=== PATIENT | male | born 1965 | race Caucasian/White ===

== ENCOUNTER → 2023-07-01 | Outpatient (CLI) | payer BC ==
--- NOTE | 2023-07-01 13:42 | US ---
EXAMINATION TYPE: US abdomen complete DATE OF EXAM: 07/01/2023 COMPARISON: NONE CLINICAL INDICATION: Male, 57 years old with history of R10.9 UNSPECIFIED ABDOMINAL PAIN; Pt states e pigastric pain x 3 days TECHNIQUE: Multiple sonographic images of the abdomen are obtained. FINDINGS: EXAM MEASUREMENTS: Liver Length: 15.0 cm Gallbladder Wall: 0.2 cm CBD: 1.6 cm Spleen: 10.8 cm Right Kidney: 11.6 x 5.7 x 5.2 cm Left Kidney: 11.8 x 6.0 x 5.2 cm Pancreas: 3mm panc duct visualized, Liver: wnl Gallbladder: Distended with probable sludge Evidence for sonographic Meeks's sign: Yes CBD: Dilated Spleen: wnl Right Kidney: wnl, upper pole gassed out Left Kidney: wnl Upper IVC: wnl Abd Aorta: wnl, distal portion gassed out IMPRESSION: Dilated gallbladder with biliary sludge with positive sonographic Meeks's sign suggesting acute chol ecystitis. Correlate with signs and symptoms and consider HIDA scan for confirmation.
== END | disposition home or self-care (01) ==
LOC: RADUSWWP 12:59
PROVIDERS: ATTEND Family Medicine
DX: K82.8 Other specified diseases of gallbladder (principal)
CPT/HCPCS: 76700

== ENCOUNTER 2023-07-03 11:09 | Emergency (ER) | payer BC ==
[2023-07-03 11:25] VITALS: RESP 18
--- NOTE | 2023-07-03 11:48 | ED ---
Abdominal Pain HPI - General Source: patient, RN notes reviewed Mode of arrival: ambulatory Limitations: no limitations <Roxana Sultana - Last Filed: 07/03/23 11:45> <Diogenes Cortez - Last Filed: 07/03/23 18:14> - General Chief Complaint: Abdominal Pain Stated Complaint: Abn Labs Time Seen by Provider: 07/03/23 11:30 - History of Present Illness Initial Comments: Quick noteis a 57-year-old male who presents the emergency department chief complaint of abdominal pain and GI symptoms worse over the last 6 days. Patient states that he has had intermittent diarrhea, nausea and vomiting, last episode 2 days ago. He endorses light colored stool over the last few days. Denies hememesis, hematochezia, dark/tarry stools, history of abdominal surguries. since this time with his last (DanicaеленаRoxana) 57-year-old male sent in by primary care for abnormal outpatient lab tests and 1 week history of abdominal pain. Patient reports epigastric abdominal pain with associated nausea and early satiety. He also reports dark urine and light- colored stool. No fever. He received an outpatient ultrasound earlier this week as well as laboratory testing. (Diogenes Cortez) - Related Data Home Medications Medication Instructions Recorded Confirmed No Known Home Medications 07/03/23 07/03/23 Allergies Allergy/AdvReac Type Severity Reaction Status Date / Time No Known Allergies Allergy Verified 07/03/23 17:27 Review of Systems ROS Other: All systems not noted in ROS Statement are negative. <Roxana Sultana - Last Filed: 07/03/23 11:45> ROS Other: All systems not noted in ROS Statement are negative. <Diogenes Cortez - Last Filed: 07/03/23 18:14> ROS Statement: Those systems with pertinent positive or pertinent negative responses have been documented in the HPI. Past Medical History Past Medical History: No Reported History History of Any Multi-Drug Resistant Organisms: None Reported Past Surgical History: Orthopedic Surgery, Tonsillectomy Past Psychological History: No Psychological Hx Reported Smoking Status: Current every day smoker Past Alcohol Use History: Occasional Past Drug Use History: Marijuana <Roxana Sultana - Last Filed: 07/03/23 11:45> General Exam Limitations: no limitations <Roxana Sultana - Last Filed: 07/03/23 11:45> General appearance: alert, in no apparent distress Head exam: Present: atraumatic, normocephalic Eye exam: Present: normal appearance, PERRL ENT exam: Present: normal exam Neck exam: Present: normal inspection Respiratory exam: Present: normal lung sounds bilaterally. Absent: respiratory distress, wheezes Cardiovascular Exam: Present: regular rate, normal rhythm GI/Abdominal exam: Present: soft, tenderness (Epigastric tenderness). Absent: distended, guarding, rebound Extremities exam: Present: normal inspection, normal capillary refill Neurological exam: Present: alert, oriented X3, CN II-XII intact. Absent: motor sensory deficit Psychiatric exam: Present: normal affect, normal mood Skin exam: Present: warm, dry, intact. Absent: cyanosis, diaphoretic <Diogenes Cortez - Last Filed: 07/03/23 18:14> - General Exam Comments Initial Comments: Visual Physical Exam Vital signs reviewed General: Well-appearing, nontoxic, no acute distress. Head: Normocephalic, atraumatic Eyes: PERRLA, EOMI ENT: Airway patent Chest: Nonlabored breathing Skin: No visual rash, normal skin tone Neuro: Alert and oriented 3 Musculoskeletal: No gross abnormalities (Roxana Sultana) Course Vital Signs 07/03/23 07/03/23 11:12 16:32 Temperature 97.7 F Pulse Rate 76 50 L Respiratory 18 18 Rate Blood Pressure 133/75 150/84 O2 Sat by Pulse 98 98 Oximetry Medical Decision Making <Roxana Sultana - Last Filed: 07/03/23 11:45> - Lab Data Result diagrams: 07/03/23 12:48 07/03/23 12:48 <Diogenes Cortez - Last Filed: 07/03/23 18:14> - Medical Decision Making I completed the quick note portion of this chart signed Roxana Sultana PA-C (Roxana Sultana) Was pt. sent in by a medical professional or institution (CORNELL Quintero, SERVICE ORDER DISPATCHER, urgent care, hospital, or custodial...) When possible be specific @20 by primary care with abnormal lab testing. Did you speak to anyone other than the patient for history (EMS, parent, family, police, friend...)? What history was obtained from this source @ -No Did you review nursing and triage notes (agree or disagree)? Why? @ -I reviewed and agree with nursing and triage notes Were old charts reviewed (outside hosp., previous admission, EMS record, old EKG, old radiological studies, urgent care reports/EKG's, custodial records)? Report findings @ -No old charts were reviewed Differential Abdominal Pain Men: Appendicitis, cholecystitis, diverticulosis, ischemic bowel, pancreatitis, hepatitis, UTI, gastroenteritis, AAA, incarcerated hernia, bowel obstruction, constipation, inflammatory bowel, hepatitis, peptic ulcer disease, splenic infarction, perforated viscus, testicular torsion, this is not meant to be an all-inclusive list EKG interpreted by me (3pts min.). @ -As above X-rays interpreted by me (1pt min.). @ -None done CT interpreted by me (1pt min.). @CT showing dilated common bile duct thank, concern for obstructing mass. U/S interpreted by me (1pt. min.). @ -None done What testing was considered but not performed or refused? (CT, X-rays, U/S, labs)? Why? @ -None What meds were considered but not given or refused? Why? @ -None Did you discuss the management of the patient with other professionals (professionals i.e. , PA, SERVICE ORDER DISPATCHER, lab, RT, psych nurse, older adult social work specialist, ios software engineer, teacher, minesweeping officer, oil field caser)? Give summary @ -Case discussed with Lilliana Griffith, Dr. Figueroa, will accept for GI consultation. Was smoking cessation discussed for >3mins.? @ -No Was critical care preformed (if so, how long)? @ -No Were there social determinants of health that impacted care today? How? (Homelessness, low income, unemployed, alcoholism, drug addiction, transportation, low edu. Level, literacy, decrease access to med. care, skilled nursing, rehab)? @ -No Was there de-escalation of care discussed even if they declined (Discuss DNR or withdrawal of care, Hospice)? DNR status @ -No What co-morbidities impacted this encounter? (DM, HTN, Smoking, COPD, CAD, Cancer, CVA, ARF, Chemo, Hep., AIDS, mental health diagnosis, sleep apnea, morbid obesity)? @ -None Was patient admitted / discharged? Hospital course, mention meds given and route, prescriptions, significant lab abnormalities, going to OR and other pertinent info. @ -57-year-old male presenting with vague abdominal discomfort and jaundice as well as light-colored stool. Patient does have hyperbilirubinemia with a bilirubin of 6 and transaminitis. He is afebrile with normal white blood cell count. Ultrasound performed 2 days ago did show dilated common bile duct and thickening of the gallbladder wall. Patient was covered with antibiotics, Zosyn in the setting of biliary obstruction. Patient will require GI consultation for evaluation of this obstruction. He is transferred to [facility]. Undiagnosed new problem with uncertain prognosis? @ -No Drug Therapy requiring intensive monitoring for toxicity (Heparin, Nitro, Insulin, Cardizem)? @ -No Were any procedures done? @ -No Diagnosis/symptom? @ -Hyperbilirubinemia, bile duct obstruction, jaundice Acute, or Chronic, or Acute on Chronic? @Acute Uncomplicated (without systemic symptoms) or Complicated (systemic symptoms)? @ -Default Side effects of treatment? @ -No Exacerbation, Progression, or Severe Exacerbation? @ -No Poses a threat to life or bodily function? How? (Chest pain, USA, MA, pneumonia, PE, COPD, DKA, ARF, appy, cholecystitis, CVA, Diverticulitis, Homicidal, Suicidal, threat to staff... and all critical care pts) @ -Yes, pancreatic mass, ascending cholangitis (Diogenes Cortez) - Lab Data Lab Results 07/03/23 07/03/23 07/03/23 Range/Units 12:48 12:48 12:48 WBC 5.5 (3.8-10.6) k/uL RBC 4.57 (4.30-5.90) m/uL Hgb 14.9 (13.0-17.5) gm/dL Hct 46.8 (39.0-53.0) % MCV 102.4 H (80.0-100.0) fL MCH 32.6 (25.0-35.0) pg MCHC 31.8 (31.0-37.0) g/dL RDW 12.8 (11.5-15.5) % Plt Count 166 (150-450) k/uL MPV 8.3 Neutrophils % 58 % Lymphocytes % 33 % Monocytes % 6 % Eosinophils % 1 % Basophils % 1 % Neutrophils # 3.2 (1.3-7.7) k/uL Lymphocytes # 1.8 (1.0-4.8) k/uL Monocytes # 0.3 (0-1.0) k/uL Eosinophils # 0.0 (0-0.7) k/uL Basophils # 0.0 (0-0.2) k/uL Macrocytosis Slight PT 11.1 (10.0-12.5) sec INR 1.0 (<1.2) APTT 24.6 (22.0-30.0) sec Sodium 139 (137-145) mmol/L Potassium 4.3 (3.5-5.1) mmol/L Chloride 109 H (98-107) mmol/L Carbon Dioxide 23 (22-30) mmol/L Anion Gap 7 mmol/L BUN 22 H (9-20) mg/dL Creatinine 0.99 (0.66-1.25) mg/dL Est GFR (CKD-EPI)AfAm >90 (>60 ml/min/1.73 sqM) Est GFR (CKD-EPI)NonAf 83 (>60 ml/min/1.73 sqM) Glucose 81 (74-99) mg/dL Plasma Lactic Acid Jose Raul (0.7-2.0) mmol/L Calcium 9.1 (8.4-10.2) mg/dL Total Bilirubin 6.0 H (0.2-1.3) mg/dL AST 338 H (17-59) U/L ALT 712 H (4-49) U/L Alkaline Phosphatase 215 H (38-126) U/L Total Protein 7.2 (6.3-8.2) g/dL Albumin 4.3 (3.5-5.0) g/dL Amylase 100 (30-110) U/L Lipase 481 H (23-300) U/L Urine Color Urine Appearance (Clear) Urine pH (5.0-8.0) Ur Specific Buchanan (1.001-1.035) Urine Protein (Negative) Urine Glucose (UA) (Negative) Urine Ketones (Negative) Urine Blood (Negative) Urine Nitrite (Negative) Urine Bilirubin (Negative) Urine Urobilinogen (<2.0) mg/dL Ur Leukocyte Esterase (Negative) Urine RBC (0-5) /hpf Urine WBC (0-5) /hpf Ur Squamous Epith Cells (0-4) /hpf Urine Mucus (None) /hpf 07/03/23 07/03/23 07/03/23 Range/Units 12:48 15:40 16:31 WBC (3.8-10.6) k/uL RBC (4.30-5.90) m/uL Hgb (13.0-17.5) gm/dL Hct (39.0-53.0) % MCV (80.0-100.0) fL MCH (25.0-35.0) pg MCHC (31.0-37.0) g/dL RDW (11.5-15.5) % Plt Count (150-450) k/uL MPV Neutrophils % % Lymphocytes % % Monocytes % % Eosinophils % % Basophils % % Neutrophils # (1.3-7.7) k/uL Lymphocytes # (1.0-4.8) k/uL Monocytes # (0-1.0) k/uL Eosinophils # (0-0.7) k/uL Basophils # (0-0.2) k/uL Macrocytosis PT (10.0-12.5) sec INR (<1.2) APTT (22.0-30.0) sec Sodium (137-145) mmol/L Potassium (3.5-5.1) mmol/L Chloride (98-107) mmol/L Carbon Dioxide (22-30) mmol/L Anion Gap mmol/L BUN (9-20) mg/dL Creatinine (0.66-1.25) mg/dL Est GFR (CKD-EPI)AfAm (>60 ml/min/1.73 sqM) Est GFR (CKD-EPI)NonAf (>60 ml/min/1.73 sqM) Glucose (74-99) mg/dL Plasma Lactic Acid Jose Raul 0.6 L 0.7 (0.7-2.0) mmol/L Calcium (8.4-10.2) mg/dL Total Bilirubin (0.2-1.3) mg/dL AST (17-59) U/L ALT (4-49) U/L Alkaline Phosphatase (38-126) U/L Total Protein (6.3-8.2) g/dL Albumin (3.5-5.0) g/dL Amylase (30-110) U/L Lipase (23-300) U/L Urine Color Dark Brown Urine Appearance Cloudy (Clear) Urine pH 6.0 (5.0-8.0) Ur Specific Buchanan 1.032 (1.001-1.035) Urine Protein Trace H (Negative) Urine Glucose (UA) Negative (Negative) Urine Ketones Negative (Negative) Urine Blood Negative (Negative) Urine Nitrite Negative (Negative) Urine Bilirubin 2+ H (Negative) Urine Urobilinogen 4.0 (<2.0) mg/dL Ur Leukocyte Esterase Trace H (Negative) Urine RBC 1 (0-5) /hpf Urine WBC 7 H (0-5) /hpf Ur Squamous Epith Cells <1 (0-4) /hpf Urine Mucus Many H (None) /hpf Disposition <Roxana Sultana - Last Filed: 07/03/23 11:45> Is patient prescribed a controlled substance at d/c from ED?: No Time of Disposition: 18:14 - Out of Hospital Transfer - Req. Specs Out of Hospital Transfer - Requested Specifics: Other Emergency Center (Transfer to [facility]) <Diogenes Cortez - Last Filed: 07/03/23 18:14> Clinical Impression: Hyperbilirubinemia, Obstruction of pancreatic duct Disposition: OTHER INSTITUTION NOT DEFINED Condition: Stable Referrals: Blaine Davidson MD [Primary Care Provider] - 1-2 days
[2023-07-03 13:07] LABS: Basophils % (A) 1 %; Eosinophils % (A) 1 %; HCT 46.8 % (39.0-53.0); HGB 14.9 gm/dL (13.0-17.5); Lymphocytes # (A) 1.8 k/uL (1.0-4.8); Lymphocytes % (A) 33 %; MCH 32.6 pg (25.0-35.0); MCHC 31.8 g/dL (31.0-37.0); MCV 102.4 fL (80.0-100.0); Macrocytosis Slight; Mean Platelet Volume 8.3; Monocytes # (A) 0.3 k/uL (0-1.0); Monocytes % (A) 6 %; Neutrophils # (A) 3.2 k/uL (1.3-7.7); Neutrophils % (A) 58 %; Platelet Count 166 k/uL (150-450); RBC 4.57 m/uL (4.30-5.90); RDW 12.8 % (11.5-15.5); WBC 5.5 k/uL (3.8-10.6)
[2023-07-03 13:10] LABS: ALT 712 U/L (4-49); AST 338 U/L (17-59); African American GFR (CKD) >90 (>60 ml/min/1.73 sqM); Albumin 4.3 g/dL (3.5-5.0); Alkaline Phosphatase 215 U/L (38-126); Amylase 100 U/L (30-110); Anion Gap 7 mmol/L; Blood Urea Nitrogen 22 mg/dL (9-20); Calcium 9.1 mg/dL (8.4-10.2); Carbon Dioxide 23 mmol/L (22-30); Chloride 109 mmol/L (98-107); Glucose 81 mg/dL (74-99); Lipase 481 U/L (23-300); Non-African American GFR(CKD) 83 (>60 ml/min/1.73 sqM); Potassium 4.3 mmol/L (3.5-5.1); Sodium 139 mmol/L (137-145); Total Protein 7.2 g/dL (6.3-8.2)
[2023-07-03 13:16] LABS: Partial Thromboplastin Time 24.6 sec (22.0-30.0); Prothrombin Time 11.1 sec (10.0-12.5)
[2023-07-03 17:02] LABS: Appearance,Urine Cloudy (Clear); Bilirubin,Urine 2+ (Negative); Blood,Urine Negative (Negative); Color,Urine Dark Brown; Glucose,Urine (UA) Negative (Negative); Ketones,Urine Negative (Negative); Leukocyte Esterase,Urine Trace (Negative); Mucus,Urine Many /hpf; Nitrite,Urine Negative (Negative); Protein,Urine Trace (Negative); RBC,Urine 1 /hpf (0-5); Specific Gravity,Urine 1.032 (1.001-1.035); Squamous Epithelial Cell,Urine <1 /hpf (0-4); WBC,Urine 7 /hpf (0-5)
[2023-07-03] MEDS: SODIUM CHLORIDE 0.9% 1,000 ML IV ONE (17:05)
[2023-07-03] MEDS: PIPERACILLIN-TAZOBACTAM 3.375 GM in SODIUM CHLORIDE 0.9% 100 ML IVPB SCH (17:05)
--- NOTE | 2023-07-03 17:25 | CT ---
EXAMINATION TYPE: CT abdomen pelvis w con CT DLP: 698.8 mGycm, Automated exposure control for dose reduction was used. DATE OF EXAM: 07/03/2023 5:03 PM COMPARISON: None CLINICAL INDICATION:Male, 57 years old with history of epigastric/hyperbili; epigastric abd pain. TECHNIQUE: Axial CT abdomen pelvis w con;Sagittal and coronal reformats were created on a separate w orkstation. Contrast used:100 ml mL of Isovue 300 with IV Contrast, (none if empty) Oral contrast used: without Oral Contrast (none if empty) FINDINGS: LOWER CHEST: Unremarkable ABDOMEN LIVER: Unremarkable GALLBLADDER AND BILE DUCTS: The common bile duct terminates abruptly series series 201 image 46. The common duct is dilated up to 12 mm. The central intrahepatic bili sys tem is also dilated. PANCREAS: Questionable low-density area series 201 image 25 in the pancreatic head/uncinate process. Area measures 2.3 x 1.2 cm. SPLEEN: Unremarkable. ADRENAL GLANDS: Unremarkable. KIDNEYS AND URETERS: No evidence of hydronephrosis or renal calculus. The ureters are unremarkable. PELVIS BLADDER: Unremarkable REPRODUCTIVE: Prostate is enlarged in size measuring cm in transverse dimension. ABDOMEN & PELVIS STOMACH AND BOWEL: No evidence of bowel obstruction. PERITONEUM/RETROPERITONEUM: No evidence of pneumoperitoneum or free fluid. VASCULATURE: No evidence of aortic aneurysm. MUSCULOSKELETAL: No acute osseous abnormalities LYMPH NODES: No gross evidence for lymphadenopathy. SOFT TISSUE/ABDOMINAL WALL: Unremarkable IMPRESSION: Dilation of the common bile duct and central intrahepatic biliary system. There is abrupt cut off of the common bile duct in the pancreatic head with underlying pancreatic head/uncinate process mass sug gested. ERCP with tissue sampling recommended.
[2023-07-03 18:42] VITALS: BP 161/86; PULSE 78; TEMP 98.1
[2023-07-03 20:09] LABS: Hepatitis A Antibody IgM Nonreactive (Nonreactive); Hepatitis B Core IgM Nonreactive (Nonreactive); Hepatitis B Surface Antigen Nonreactive (Nonreactive); Hepatitis C IgG Antibody Nonreactive (Nonreactive)
== END 2023-07-03 20:26 | disposition other institution (70) ==
LOC: EC 11:09
DX: K86.89 Other specified diseases of pancreas (principal); E80.6 Other disorders of bilirubin metabolism; F17.200 Nicotine dependence, unspecified, uncomplicated
CPT/HCPCS: 36415; 80053; 80074; 82150; 83605; 83690; 85025; 85610; 85730; 81001; 87040; 74177; 99285; 96365; 96366 ×2; J2543; Q9967